=== PATIENT | male | born 1975 | race Caucasian/White ===

== ENCOUNTER 2019-01-24 17:38 | Emergency (ER) | payer OTHER ==
[2019-01-24] MEDS ORDERED: KETOROLAC 30 MG/ML INJ ONE (18:13)
[2019-01-24] MEDS ORDERED: NA CHLORIDE 0.9% 1,000 ML ONE (18:14)
[2019-01-24 18:17] LABS: Absolute Monocytes 0.8 K/uL (0.1-1.3); Absolute Neutrophil 9.5 K/uL (1.8-8.0); Basophils % 0.3 % (0-1.3); Eosinophils % 0.4 % (0-4.4); Hematocrit 41.8 % (39.6-49.0); Lymphocytes % 8.8 % (15.3-44.8); MPV 8.5 fL (7.6-11.3); Monocytes % 7.4 % (3.3-12.3); RBC Red Blood Cell Count 4.77 M/uL (4.33-5.43)
[2019-01-24 18:29] LABS: Urine Blood 2+ (NEG); Urine Glucose NEGATIVE (NEG); Urine Protein NEGATIVE (NEG); Urine pH 5.5 (5.0-7.0)
[2019-01-24 18:36] LABS: Potassium 3.8 mmol/L (3.5-5.1)
[2019-01-24 18:40] LABS: Urine Bacteria NONE SEEN /HPF (NONE SEEN); Urine Culture Reflex Order NOT NEEDED; Urine RBC <5 /HPF (NONE SEEN)
--- NOTE | 2019-01-24 19:41 | EDPHYS ---
Physician Documentation [facility] Name: Jb Kolb Age: 43 yrs Sex: Male : 1975 Arrival Date: 01/24/2019 Time: 17:38 Bed 23 Private MD: Sawyer Ruiz ED Physician Bean Abarca HPI: 01/25 01:41 This 43 yrs old Male presents to ER via Ambulatory with complaints of snw Possible Kidney Stone. 01:41 Onset: The symptoms/episode began/occurred gradually. Associated signs and symptoms: snw Pertinent positives: significant pain. Modifying factors: The patient symptoms are alleviated by nothing. The patient has not experienced similar symptoms in the past. The patient has been recently seen by a physician: with similar presenting complaints, pt was seen at [facility] 01/23/19, dx with 5mm Left proximal ureteral stone. Sent to Urologist. Pt is taking Cipro, flomax, Oxycodone, and anti-emetic. Pt states pain became much worse just prior to arrival. Historical: - Allergies: 01/24 17:54 No Known Allergies; hb - PMHx: 17:54 None; hb - PSHx: 17:54 None; hb - Immunization history:: Adult Immunizations up to date. - Social history:: Smoking status: Patient/guardian denies using tobacco. - Ebola Screening: : No symptoms or risks identified at this time. ROS: 01/25 01:38 Constitutional: Negative for fever, chills, and weight loss, Eyes: Negative for injury, snw pain, redness, and discharge, ENT: Negative for injury, pain, and discharge, Neck: Negative for injury, pain, and swelling, Cardiovascular: Negative for chest pain, palpitations, and edema, Respiratory: Negative for shortness of breath, cough, wheezing, and pleuritic chest pain, : Negative for injury, bleeding, discharge, and swelling, MS/Extremity: Negative for injury and deformity, Skin: Negative for injury, rash, and discoloration, Neuro: Negative for headache, weakness, numbness, tingling, and seizure. Abdomen/GI: Positive for abdominal pain, nausea. Back: Positive for flank pain, on the left. Exam: 01:38 Constitutional: This is a well developed, well nourished patient who is awake, alert, snw and in no acute distress. Head/Face: Normocephalic, atraumatic. Eyes: Pupils equal round and reactive to light, extra-ocular motions intact. Lids and lashes normal. Conjunctiva and sclera are non-icteric and not injected. Cornea within normal limits. Periorbital areas with no swelling, redness, or edema. ENT: Nares patent. No nasal discharge, no septal abnormalities noted. Tympanic membranes are normal and external auditory canals are clear. Oropharynx with no redness, swelling, or masses, exudates, or evidence of obstruction, uvula midline. Mucous membranes moist. Neck: Trachea midline, no thyromegaly or masses palpated, and no cervical lymphadenopathy. Supple, full range of motion without nuchal rigidity, or vertebral point tenderness. No Meningismus. Chest/axilla: Normal chest wall appearance and motion. Nontender with no deformity. No lesions are appreciated. Cardiovascular: Regular rate and rhythm with a normal S1 and S2. No gallops, murmurs, or rubs. Normal PMI, no JVD. No pulse deficits. Respiratory: Lungs have equal breath sounds bilaterally, clear to auscultation and percussion. No rales, rhonchi or wheezes noted. No increased work of breathing, no retractions or nasal flaring. Back: No spinal tenderness. No costovertebral tenderness. Full range of motion. Skin: Warm, dry with normal turgor. Normal color with no rashes, no lesions, and no evidence of cellulitis. MS/ Extremity: Pulses equal, no cyanosis. Neurovascular intact. Full, normal range of motion. Neuro: Awake and alert, GCS 15, oriented to person, place, time, and situation. Cranial nerves II-XII grossly intact. Motor strength 5/5 in all extremities. Sensory grossly intact. Cerebellar exam normal. Normal gait. 01:38 Abdomen/GI: Inspection: abdomen appears normal, Bowel sounds: normal, Palpation: mild abdominal tenderness, in the left lower quadrant. Vital Signs: 01/24 17:52 BP 132 / 92; Pulse 80; Resp 16; Temp 99; Pulse Ox 99% ; Pain 9/10; hb 19:26 BP 129 / 69; Pulse 76; Resp 18 S; Temp 98.7(O); Pulse Ox 100% on R/A; ca1 MDM: 17:47 Patient medically screened. snw 01/25 01:39 Data reviewed: vital signs, nurses notes. Data interpreted: Pulse oximetry: on room air snw is 100 %. Interpretation: normal. Counseling: I had a detailed discussion with the patient and/or guardian regarding: the historical points, exam findings, and any diagnostic results supporting the discharge/admit diagnosis, lab results, the need for outpatient follow up, the need for further work-up and treatment in the hospital, to return to the emergency department if symptoms worsen or persist or if there are any questions or concerns that arise at home. Response to treatment: the patient's symptoms have markedly improved after treatment, patient is well hydrated. Special discussion: Based on the patient's Hx, exam, and Dx evaluation, there is no indication for emergent surgery or inpatient Tx. It is understood by the patient/guardian that if the Sx's persist or worsen they need to return immediately for re-evaluation. Based on the history and exam findings, there is no indication for further emergent testing or inpatient evaluation. I discussed with the patient/guardian the need to see the primary care provider for further evaluation of the symptoms. I discussed with the patient/guardian the need to see the urologist for further evaluation of the symptoms. ED course: Please continue current medication course and add diclofenac. If unable to tolerate pain, please return to ED. 01/24 17:57 Order name: CBC with Diff; Complete Time: 18:24 snw 01/24 17:57 Order name: Chem 7; Complete Time: 18:40 snw 01/24 17:57 Order name: Urine Microscopic Only; Complete Time: 18:40 snw 01/24 18:23 Order name: Urine Dipstick--Ancillary (enter results); Complete Time: 18:35 eb Administered Medications: 01/24 18:05 Drug: NS 0.9% 1000 ml Route: IV; Rate: 1 bolus; Site: right antecubital; ca1 19:30 Follow up: Urine output 320 ml; Response: No adverse reaction; IV Status: Completed ca1 infusion 18:06 Drug: TORadol 30 mg Route: IVP; Site: right antecubital; ca1 19:35 Follow up: Response: No adverse reaction; Pain is decreased ca1 Disposition: 01/24/19 19:40 Discharged to Home. Impression: Hydronephrosis with renal and ureteral calculous obstruction. - Condition is Stable. - Discharge Instructions: Kidney Stones, Renal Colic, Hydronephrosis, Dietary Guidelines to Help Prevent Kidney Stones. - Prescriptions for Diclofenac Sodium 75 mg Oral Tablet Sustained Release - take 1 tablet by ORAL route 2 times per day; 30 tablet. - Medication Reconciliation Form, Thank You Letter, Antibiotic Education, Prescription Opioid Use form. - Follow up: Sawyer Ruiz MD; When: as planned; Reason: Recheck today's complaints, Continuance of care, Re-evaluation by your physician. - Problem is an acute exacerbation. - Symptoms have improved. - Notes: Please continue current medications. Addendum: 01/25/2019 22:45 Co-signature as Attending Physician, Bean Abarca MD. r n Signatures: Dispatcher [employer] EDMS Marilu Henning, CAR RENTAL AGENCY MANAGER-C CAR RENTAL AGENCY MANAGER-Csnw Bean Abarca MD MD rn Nguyen Nicholas, RN RN hb AcDaly price RN RN ca1 Corrections: (The following items were deleted from the chart) 01/24 19:55 19:40 01/24/2019 19:40 Discharged to Home. Impression: Hydronephrosis with renal and ca1 ureteral calculous obstruction. Condition is Stable. Forms are Medication Reconciliation Form, Thank You Letter, Antibiotic Education, Prescription Opioid Use. Follow up: Sawyer Ruiz; When: as planned; Reason: Recheck today's complaints, Continuance of care, Re-evaluation by your physician. Problem is an acute exacerbation. Symptoms have improved. snw
--- NOTE | 2019-01-24 19:41 | ER ---
Nurse's Notes [facility] Name: Jb Kolb Age: 43 yrs Sex: Male : 1975 Arrival Date: 01/24/2019 Time: 17:38 Bed 23 Private MD: Sawyer Ruiz Diagnosis: Hydronephrosis with renal and ureteral calculous obstruction Presentation: 01/24 17:51 Presenting complaint: Seen by urgent care and urologist yesterday for left sided kidney hb stone, on Flomax, oxycodone, and Zofran. Today c/o left flank pain 06/03. Transition of care: patient was not received from another setting of care. Onset of symptoms was January 24, 2019. Risk Assessment: Do you want to hurt yourself or someone else? Patient reports no desire to harm self or others. Care prior to arrival: None. 17:51 Method Of Arrival: Ambulatory hb 17:51 Acuity: DIALLO 3 hb 18:22 Initial Sepsis Screen: Does the patient meet any 2 criteria? No. Patient's initial ca1 sepsis screen is negative. Does the patient have a suspected source of infection? Yes: Dysuria/Frequency/Urgency/UTI. Historical: - Allergies: 17:54 No Known Allergies; hb - PMHx: 17:54 None; hb - PSHx: 17:54 None; hb - Immunization history:: Adult Immunizations up to date. - Social history:: Smoking status: Patient/guardian denies using tobacco. - Ebola Screening: : No symptoms or risks identified at this time. Screenin:54 Abuse screen: Denies threats or abuse. Denies injuries from another. Nutritional ca1 screening: No deficits noted. Tuberculosis screening: No symptoms or risk factors identified. Fall Risk None identified. Assessment: 17:54 General: Appears in no apparent distress. uncomfortable, Behavior is calm, cooperative, ca1 appropriate for age. Pain: Complains of pain in anterior aspect of right lateral abdomen and posterior aspect of right lateral abdomen Pain currently is 9 out of 10 on a pain scale. Pain began 2-3 days ago. Is continuous. Neuro: Level of Consciousness is awake, alert, obeys commands, Oriented to person, place, time, situation. Cardiovascular: Heart tones S1 S2 present Capillary refill < 3 seconds Patient's skin is warm and dry. Respiratory: Airway is patent Respiratory effort is even, unlabored, Respiratory pattern is regular, symmetrical, Breath sounds are clear bilaterally. GI: Abdomen is flat, non-distended, Bowel sounds present X 4 quads. Abd is soft X 4 quads Abdomen is tender to palpation in anterior aspect of right lateral abdomen. : Reports having kidney stones and taking medications for it. EENT: No deficits noted. No signs and/or symptoms were reported regarding the EENT system. Derm: Skin is intact, is healthy with good turgor, Skin is pink, warm \T\ dry. Musculoskeletal: Circulation, motion, and sensation intact. Capillary refill < 3 seconds. 19:26 Reassessment: Patient appears in no apparent distress at this time. Patient and/or ca1 family updated on plan of care and expected duration. Pain level reassessed. Patient is alert, oriented x 3, equal unlabored respirations, skin warm/dry/pink. Patient states feeling better. Vital Signs: 17:52 BP 132 / 92; Pulse 80; Resp 16; Temp 99; Pulse Ox 99% ; Pain 9/10; hb 19:26 BP 129 / 69; Pulse 76; Resp 18 S; Temp 98.7(O); Pulse Ox 100% on R/A; ca1 ED Course: 17:38 Patient arrived in ED. as 17:39 Sawyer Ruiz MD is Private Physician. as 17:46 [facility]il[facility] Hen[facility]-C [facility] snw 17:46 Bean Abarca MD is Attending Physician. snw 17:50 Daly Evans, MARVIN is Primary Nurse. ca1 17:52 Triage completed. hb 17:52 Arm band placed on. hb 17:54 Patient has correct armband on for positive identification. Placed in gown. Bed in low ca1 position. Call light in reach. Side rails up X 1. Pulse ox on. NIBP on. Warm blanket given. 18:08 Initial lab(s) drawn, by me, sent to lab. Inserted saline lock: 20 gauge in right lt1 antecubital area, using aseptic technique. 18:21 Urine collected: clean catch specimen, clear, Amount Voided: 280mL. ca1 19:36 Sawyer Ruiz MD is Referral Physician. snw 19:54 No provider procedures requiring assistance completed. IV discontinued, intact, ca1 bleeding controlled, No redness/swelling at site. Pressure dressing applied. Administered Medications: 18:05 Drug: NS 0.9% 1000 ml Route: IV; Rate: 1 bolus; Site: right antecubital; ca1 19:30 Follow up: Urine output 320 ml; Response: No adverse reaction; IV Status: Completed ca1 infusion 18:06 Drug: TORadol 30 mg Route: IVP; Site: right antecubital; ca1 19:35 Follow up: Response: No adverse reaction; Pain is decreased ca1 Output: 19:30 Urine: 320ml; Total: 320ml. ca1 Outcome: 19:40 Discharge ordered by . snjose 19:54 Discharged to home ambulatory, with significant other. ca1 19:54 Condition: stable 19:54 Discharge instructions given to patient, Instructed on discharge instructions, follow up and referral plans. medication usage, Demonstrated understanding of instructions, follow-up care, medications, Prescriptions given X 1. 19:55 Patient left the ED. ca1 Signatures: Marilu Henning, BETTIE-C TAPPER HAND-Mariela Gorman Heather RN RN Daly Evans RN RN ca1 Yumiko, Ashley lt1
== END 2019-01-24 19:55 | disposition home or self-care (01) ==
LOC: ER 17:38
DX: N13.2 Hydronephrosis with renal and ureteral calculous obstruction (principal)
CPT/HCPCS: 36415; 80048; 81003; 81015; 85025; 96361; 96374; 99284; J7030